=== PATIENT | female | born 1940 | race Caucasian/White ===

== ENCOUNTER → 2017-04-28 | Outpatient (CLI) | payer MEDICARE, OTHER | LOC: RAD 11:42 | DX: M54.5 Low back pain (principal); M51.36 Other intervertebral disc degeneration, lumbar region; M47.896 Other spondylosis, lumbar region | CPT/HCPCS: 72110 ==

== ENCOUNTER → 2017-08-06 | Outpatient (CLI) | payer MEDICARE, OTHER | LOC: RAD 14:20 | DX: M13.871 Other specified arthritis, right ankle and foot (principal) | CPT/HCPCS: 73630 ==

== ENCOUNTER → 2020-12-14 | Outpatient (CLI) | payer MEDICARE ==
[~2020-12-14] MED LIST: AMOX TR-K CLV1 EAC4 PO; ASPIR 8181 MG PO; CEFUROXIME500 MG PO; COLACE 100MG C100 MG PO; CYCLOBENZAPRINE5 MG PO; CYMBALTA 20 MG20 MG PO; ECOTRIN325 MG PO; ELIQUIS2.5 MG PO; FISH OIL 1,0001 EACH PO; FLONASE 0.05% N16 GM; GLUCOPHAGE500 MG PO; K-DUR TAB 10 M10 MEQ PO; LASIX20 MG PO; LOPRESSOR 25 MG25 MG PO; LOPRESSOR50 MG PO; MOBIC15 MG PO; MUCINEX600 MG PO; NORCO 7.5-3251 EACH PO; NORVASC 5 MG TAB5 MG PO; NORVASC5 MG PO; OMEPRAZOLE20 M1 PO; OMNICEF 300 MG300 MG PO; ONE DAILY MULT1 EAC1 PO; PREDNISONE10 MG PO; RAMIPRIL10 MG PO; TESSALON PERLE100 MG PO; TOPROL XL100 MG PO; TOPROL XL50 MG PO; TURMERIC PO; TYLENOL 500 MG500 MG PO; TYLENOL W/CODEIN1 E1 PO; VENTOLIN HFA 66.7 GM INH; VIBRAMYCIN100 MG PO; ZOCOR20 MG PO; ZOFRAN ODT 4 MG4 MG GT; ZOFRAN4 MG PO
== END ==
LOC: KOH-I 09:26 → EXRD 09:30 → KOH-I 09:30
DX: Z78.0 Asymptomatic menopausal state (principal); Z79.899 Other long term (current) drug therapy; M85.852 Other specified disorders of bone density and structure, left thigh
CPT/HCPCS: 77080

== ENCOUNTER 2021-02-25 10:30 | Emergency (ER) | payer MEDICARE, OTHER ==
[~2021-02-25 10:30] MED LIST changes: -CYCLOBENZAPRINE5 MG PO; -MOBIC15 MG PO; -ZOFRAN ODT 4 MG4 MG GT
[2021-02-25 11:36] LABS: HEMOGLOBIN 14.6 gm/dl (12.3-15.3); RED BLOOD COUNT 5.06 M/UL (4.00-5.10); WHITE BLOOD COUNT 4.7 K/UL (4.5-11.0)
[2021-02-25 12:15] LABS: BUN/CREATININE RATIO 21 (0-10)
[2021-02-25] MEDS ORDERED: MOBIC15 MG PO (12:54)
[2021-02-25] MEDS ORDERED: CYCLOBENZAPRINE5 MG PO (12:54)
== END 2021-02-25 13:10 | disposition home or self-care (01) ==
LOC: ER1 10:30
PROVIDERS: Physician Assistant
DX: S46.812A Strain of other muscles, fascia and tendons at shoulder and upper arm level, left arm, initial encounter (principal); E11.65 Type 2 diabetes mellitus with hyperglycemia; I10 Essential (primary) hypertension; Z85.3 Personal history of malignant neoplasm of breast; Z90.49 Acquired absence of other specified parts of digestive tract; Z79.82 Long term (current) use of aspirin; W01.10XA Fall on same level from slipping, tripping and stumbling with subsequent striking against unspecified object, initial encounter; Y92.009 Unspecified place in unspecified non-institutional (private) residence as the place of occurrence of the external cause
CPT/HCPCS: 71045; 73030; 80053; 82550; 82553; 83874; 84484; 85025; 93005; 99284

== ENCOUNTER 2021-04-03 18:31 | Emergency (ER) | payer MEDICARE, OTHER ==
[~2021-04-03 18:31] MED LIST changes: +CYCLOBENZAPRINE5 MG PO; +MOBIC15 MG PO
[2021-04-03 20:49] LABS: HEMOGLOBIN 14.4 gm/dl (12.3-15.3); RED BLOOD COUNT 4.98 M/UL (4.00-5.10); WHITE BLOOD COUNT 4.7 K/UL (4.5-11.0)
[2021-04-03 21:23] LABS: BUN/CREATININE RATIO 22 (0-10)
[2021-04-03] MEDS ORDERED: OMNICEF 300 MG300 MG PO (22:08)
== END 2021-04-03 22:18 | disposition home or self-care (01) ==
LOC: ER1 18:31
PROVIDERS: Emergency Medicine
DX: R51.9 Headache, unspecified (principal); H66.91 Otitis media, unspecified, right ear; I10 Essential (primary) hypertension; Z90.49 Acquired absence of other specified parts of digestive tract
CPT/HCPCS: 70450; 71045; 80053; 81001; 82550; 82553; 83874; 84439; 84443; 84484; 85025; 85652; 93005; 99283

== ENCOUNTER 2021-04-23 04:26 | Emergency (ER) | payer MEDICARE, OTHER ==
[2021-04-23 05:12] LABS: HEMOGLOBIN 16.6 gm/dl (12.3-15.3); RED BLOOD COUNT 5.68 M/UL (4.00-5.10); WHITE BLOOD COUNT 7.9 K/UL (4.5-11.0)
[2021-04-23 05:32] LABS: BUN/CREATININE RATIO 29 (0-10)
[2021-04-23] MEDS ORDERED: ZOFRAN ODT 4 MG4 MG GT (06:57)
== END 2021-04-23 09:10 | disposition home or self-care (01) ==
LOC: ER1 04:26
PROVIDERS: Family Medicine
DX: R10.31 Right lower quadrant pain (principal); E11.9 Type 2 diabetes mellitus without complications; I10 Essential (primary) hypertension
CPT/HCPCS: 80053; 83690; 85025; 93005; 96374; 99284; J2405; J7040; Q9967

== ENCOUNTER → 2021-09-27 | Outpatient (CLI) | payer MEDICARE, OTHER ==
[~2021-09-27] MED LIST changes: +ZOFRAN ODT 4 MG4 MG GT
[2021-09-27 13:30] LABS: BUN/CREATININE RATIO 23 (0-10)
== END ==
LOC: LAB 11:46
PROVIDERS: Emergency Medicine
DX: I10 Essential (primary) hypertension (principal); E53.9 Vitamin B deficiency, unspecified; E11.9 Type 2 diabetes mellitus without complications; E78.2 Mixed hyperlipidemia
CPT/HCPCS: 36415; 80053; 82607

== ENCOUNTER → 2021-11-21 | Outpatient (CLI) | payer MEDICARE, OTHER | LOC: KOH-I 08:48 | DX: R41.81 Age-related cognitive decline (principal) | CPT/HCPCS: 70450 ==

== ENCOUNTER 2022-03-10 14:06 | Emergency (ER) | payer MEDICARE, OTHER ==
[2022-03-10 15:30] LABS: HEMOGLOBIN 14.7 gm/dl (12.3-15.3); RED BLOOD COUNT 5.22 M/UL (4.00-5.10); WHITE BLOOD COUNT 5.2 K/UL (4.5-11.0)
[2022-03-10 17:31] LABS: BUN/CREATININE RATIO 16 (0-10)
== END 2022-03-10 21:30 | disposition home or self-care (01) ==
LOC: ER1 14:06
PROVIDERS: Emergency Medicine
DX: R10.9 Unspecified abdominal pain (principal); I10 Essential (primary) hypertension; E11.9 Type 2 diabetes mellitus without complications; Z85.3 Personal history of malignant neoplasm of breast
CPT/HCPCS: 80053; 81001; 82550; 82553; 83605; 83690; 84484; 85025; 96374; 96375; 99284; J2270; J2405; Q9967

== ENCOUNTER 2022-03-13 11:08 | Emergency (ER) | payer MEDICARE, OTHER ==
[2022-03-13 12:42] LABS: HEMOGLOBIN 14.6 gm/dl (12.3-15.3); RED BLOOD COUNT 5.2 M/UL (4.00-5.10); WHITE BLOOD COUNT 4.6 K/UL (4.5-11.0)
[2022-03-13 13:10] LABS: BUN/CREATININE RATIO 11 (0-10)
[2022-03-14 08:16] LABS: HBSAG SCREEN Negative (Negative); HEP A AB, IGM Negative (Negative); HEP B CORE AB, IGM Negative (Negative); HEP C VIRUS AB <0.1 (0.0-0.9)
== END 2022-03-13 14:40 | disposition home or self-care (01) ==
LOC: ER1 11:08
PROVIDERS: Emergency Medicine
DX: R10.11 Right upper quadrant pain (principal); G89.29 Other chronic pain
CPT/HCPCS: 80053; 80074; 83605; 83690; 85025; 86038; 86140; 99284

== ENCOUNTER → 2022-03-13 | Outpatient (CLI) | payer MEDICARE, OTHER | LOC: US 07:52 | DX: R74.01 Elevation of levels of liver transaminase levels (principal); Z90.49 Acquired absence of other specified parts of digestive tract | CPT/HCPCS: 76705 ==